=== PATIENT | female | born 1975 | race Hispanic/Latino ===

== ENCOUNTER 2018-01-11 15:37 | Emergency (ER) | payer SELFPAY ==
[2018-01-11] MEDS ORDERED: NA CHLORIDE 0.9% 1,000 ML ONE (15:52)
[2018-01-11] MEDS ORDERED: ONDANSETRON 4 MG/2 ML VIAL ONE (16:14)
[2018-01-11] MEDS ORDERED: MORPHINE 4 MG/ML SYR ONE (16:14)
[2018-01-11 16:19] LABS: Absolute Lymphocytes (CBC) 3.3 K/uL (0.7-4.9); Absolute Monocytes 0.5 K/uL (0.1-1.3); Absolute Neutrophil 6.2 K/uL (1.8-8.0); Basophils % 0.5 % (0-1.3); Eosinophils % 0.7 % (0-4.4); Hematocrit 36.4 % (36.0-45.0); Lymphocytes % 32.7 % (15.3-44.8); MCH 28.3 pg (27.0-35.0); MCV 83.2 fL (80-100); Monocytes % 4.8 % (3.3-12.3); RBC Red Blood Cell Count 4.38 M/uL (3.86-4.86)
[2018-01-11 16:23] LABS: Protime INR 1.02
--- NOTE | 2018-01-11 16:27 | RAD REPORT ---
EXAM DESCRIPTION: RAD - Chest Single View - 01/11/2018 3:55 pm CLINICAL HISTORY: Acute onset chest pain, shortness of breath COMPARISON: None. TECHNIQUE: AP portable chest image was obtained 1552 hours . FINDINGS: Lung volumes are low. No failure, infiltrate or mass. Heart and vasculature are normal. No measurable pleural effusion and no pneumothorax. No gross bony abnormality seen. No acute aortic fin dings suspected. IMPRESSION: No acute cardiopulmonary process.
[2018-01-11 16:33] LABS: ALT/SGPT 28 U/L (12-78); AST/SGOT 41 U/L (15-37); Albumin 3.6 g/dL (3.4-5.0); Alkaline Phosphatase 85 U/L (45-117); BUN Blood Urea Nitrogen 8 mg/dL (7-18); Bicarbonate 26 mmol/L (21-32); Bilirubin Direct 0.1 mg/dL (0-0.2); Bilirubin Total 0.4 mg/dL (0.2-1.0); CKMB Creatine Kinase MB < 1.0 ng/mL (0.3-3.6); Creatine Phosphokinase 91 U/L (26-192); Glucose Level 129 mg/dL (74-106); Magnesium 2.2 mg/dL (1.8-2.4); NT PRO-BNP 201 pg/mL (<125); Potassium 3.5 mmol/L (3.5-5.1); Sodium Level 141 mmol/L (136-145)
--- NOTE | 2018-01-11 16:37 | EKG ---
Test Date: 2018-01-11 Test Time: 15:36:56 Maintenance And Custodian Supervisor: RADHA-Tigre MEASUREMENT RESULTS: Intervals: Rate: 64 NC: 150 QRSD: 76 QT: 402 QTc: 414 [place]: P: 10 NC: 150 QRS: 3 T: 2 INTERPRETIVE STATEMENTS: Normal sinus rhythm non specific T abnormality Abnormal ECG No previous ECG available for comparison Electronically Signed On 01-11-18 16:36:48 CDT by Soren Correia
--- NOTE | 2018-01-11 18:51 | EDPHYS ---
Physician Documentation [facility] Name: Lien Lantigua Age: 42 yrs Sex: Female : 1975 Arrival Date: 01/11/2018 Time: 15:39 Bed 20 Private MD: ED Physician Augustine Harmon HPI: 01/11 15:53 This 42 yrs old Female presents to ER via EMS with complaints of Chest Pain. kav 15:53 The patient or guardian reports chest pain that is located primarily in the substernal kav area. Onset: acutely, just prior to arrival. The pain does not radiate. Associated signs and symptoms: Pertinent positives: diaphoresis, Pertinent negatives: dizziness, headache, lower extremity swelling, nausea, shortness of breath, vomiting. The chest pain is described as clutching. Duration: The patient or guardian reports a single episode, that is still ongoing, and unchanged. Modifying factors: The symptoms are alleviated by nothing. the symptoms are aggravated by emotionally stressful situations. Severity of pain: At its worst the pain was severe a 7 / 10. The patient has experienced a previous episode, approximately 3 months ago. The patient has not recently seen a physician. Patient reports chest pain that began 30 minutes prior to arrival to ED. She reports diaphoresis with onset of chest pain. Quality of chest pain is described as "...clutching". She reports prior episode of chest pain approximately 3 months ago and was seen at [facility] ED. She did not follow-up with cardiology after this first cardiac event. HR on amdission 53 bpm. . 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 - Social history:: Smoking status: Patient/guardian denies using tobacco, Patient/guardian denies using alcohol. - Ebola Screening: : Patient negative for fever greater than or equal to 101.5 degrees Fahrenheit, and additional compatible Ebola Virus Disease symptoms Patient denies exposure to infectious person Patient denies travel to an Ebola-affected area in the 21 days before illness onset. - Family history:: not pertinent. - Hospitalizations: : No recent hospitalization is reported. - History obtained from: daughter. ROS: 15:58 Constitutional: Negative for fever, chills, and weight loss, Eyes: Negative for injury, kav pain, redness, and discharge, ENT: Negative for injury, pain, and discharge, Neck: Negative for injury, pain, and swelling, Respiratory: Negative for shortness of breath, cough, wheezing, and pleuritic chest pain, Abdomen/GI: Negative for abdominal pain, nausea, vomiting, diarrhea, and constipation, Back: Negative for injury and pain, : Negative for injury, bleeding, discharge, and swelling, MS/Extremity: Negative for injury and deformity, Skin: Negative for injury, rash, and discoloration, Neuro: Negative for headache, weakness, numbness, tingling, and seizure, Psych: Negative for depression, anxiety, suicide ideation, homicidal ideation, and hallucinations, Allergy/Immunology: Negative for hives, rash, and allergies, Endocrine: Negative for neck swelling, polydipsia, polyuria, polyphagia, and marked weight changes, Hematologic/Lymphatic: Negative for swollen nodes, abnormal bleeding, and unusual bruising. 15:58 Cardiovascular: Positive for chest pain, of the anterior aspect of left upper chest and left breast. Exam: 15:58 Constitutional: This is a well developed, well nourished patient who is awake, alert, kav and in no acute distress. Head/Face: Normocephalic, atraumatic. Eyes: Pupils equal round and reactive to light, extra-ocular motions intact. Lids and lashes normal. Conjunctiva and sclera are non-icteric and not injected. Cornea within normal limits. Periorbital areas with no swelling, redness, or edema. ENT: Nares patent. No nasal discharge, no septal abnormalities noted. Tympanic membranes are normal and external auditory canals are clear. Oropharynx with no redness, swelling, or masses, exudates, or evidence of obstruction, uvula midline. Mucous membranes moist. Neck: Trachea midline, no thyromegaly or masses palpated, and no cervical lymphadenopathy. Supple, full range of motion without nuchal rigidity, or vertebral point tenderness. No Meningismus. Chest/axilla: Normal chest wall appearance and motion. Nontender with no deformity. No lesions are appreciated. Respiratory: Lungs have equal breath sounds bilaterally, clear to auscultation and percussion. No rales, rhonchi or wheezes noted. No increased work of breathing, no retractions or nasal flaring. Abdomen/GI: Soft, non-tender, with normal bowel sounds. No distension or tympany. No guarding or rebound. No evidence of tenderness throughout. Back: No spinal tenderness. No costovertebral tenderness. Full range of motion. Skin: Warm, dry with normal turgor. Normal color with no rashes, no lesions, and no evidence of cellulitis. MS/ Extremity: Pulses equal, no cyanosis. Neurovascular intact. Full, normal range of motion. Neuro: Awake and alert, GCS 15, oriented to person, place, time, and situation. Cranial nerves II-XII grossly intact. Motor strength 5/5 in all extremities. Sensory grossly intact. Cerebellar exam normal. Normal gait. Psych: Awake, alert, with orientation to person, place and time. Behavior, mood, and affect are within normal limits. 15:58 Cardiovascular: Rate: bradycardic, actual rate is 53 bpm, Rhythm: irregular, Sinus Bradycardia, Pulses: Pulses are 2+ in bilateral radial, brachial, femoral, popliteal, posterior tibial and and dorsalis pedis arteries.. Vital Signs: 15:43 BP 124 / 82; Pulse 53; Resp 18; Temp 98.1(O); Pulse Ox 100% on R/A; Weight 89.81 kg; hj Height 5 ft. 2 in. (157.48 cm); Pain 8/10; 16:30 BP 125 / 80; Pulse 60; Resp 18; Pulse Ox 100% on R/A; hj 17:34 BP 129 / 75; Pulse 69; Resp 18; Pulse Ox 98% on R/A; hj 18:22 BP 121 / 67; Pulse 70; Resp 18; Pulse Ox 100% on R/A; hj 15:43 Body Mass Index 36.21 (89.81 kg, 157.48 cm) MDM: 15:40 Medical screening is not applicable. [facility] 15:58 Data reviewed: vital signs, nurses notes. Data interpreted: director general:. kav 17:39 ED course: awaiting repeat troponin. [facility] 01/11 15:40 Order name: Basic Metabolic Panel; Complete Time: 16:40 [facility] 08 15:40 Order name: CBC with Diff; Complete Time: 16:40 [facility] 01/11 15:40 Order name: Ckmb; Complete Time: 16:40 v 01/11 15:40 Order name: CPK; Complete Time: 16:40 v 01/11 15:40 Order name: LFT's; Complete Time: 16:40 v 01/11 15:40 Order name: Magnesium; Complete Time: 16:40 v 01/11 15:40 Order name: NT PRO-BNP; Complete Time: 16:40 v 01/11 15:40 Order name: PT-INR; Complete Time: 16:40 v 01/11 15:40 Order name: Ptt, Activated; Complete Time: 16:40 v 01/11 15:40 Order name: Troponin (emerg Dept Use Only); Complete Time: 16:40 kav 01/11 15:40 Order name: XRAY Chest (1 view); Complete Time: 16:40 kav 01/11 16:06 Order name: Troponin (emerg Dept Use Only): repeat troponin \\T\\ 1700; Complete Time: 18:50kav 01/11 15:40 Order name: Urine Test (obtain specimen); Complete Time: 15:45 kav 01/11 15:40 Order name: EKG; Complete Time: 15:41 kav 01/11 15:40 Order name: Cardiac monitoring; Complete Time: 15:45 v 01/11 15:40 Order name: EKG - Nurse/Tech; Complete Time: 15:45 kav 01/11 15:40 Order name: IV Saline Lock; Complete Time: 16:02 v 01/11 15:40 Order name: Labs collected and sent; Complete Time: 16:02 v 01/11 15:40 Order name: O2 Per Protocol; Complete Time: 15:45 v 01/11 15:40 Order name: O2 Sat Monitoring; Complete Time: 15:45 kav Administered Medications: 15:45 Drug: NS 0.9% 1000 ml Route: IV; Rate: 1 bolus; Site: right hand; hj 17:23 Follow up: IV Status: Completed infusion; IV Intake: 1000ml 16:07 Drug: morphine 4 mg Route: IVP; Site: right hand; hj 16:28 Follow up: Response: No adverse reaction; Pain is decreased 16:07 Drug: Zofran 4 mg Route: IVP; Site: right hand; 16:28 Follow up: Response: No adverse reaction hj Disposition: 01/11/18 18:50 Discharged to Home. Impression: Chest pain, unspecified. - Condition is Stable. - Discharge Instructions: Chest Wall Pain. - Prescriptions for Ibuprofen 800 mg Oral Tablet - take 1 tablet by ORAL route every 8 hours As needed take with food; 30 tablet. - Medication Reconciliation Form, Thank You Letter, SBAR form form. - Follow up: Matt Rodriguez; When: 2 - 3 days; Reason: Recheck today's complaints, Continuance of care, Re-evaluation by your physician. - Problem is new. - Symptoms have improved. Addendum: 01/13/2018 07:05 Co-signature as Attending Physician, Augustine Harmon MD. r n Signatures: Dispatcher [employer] EDCharlee Jeff, GREASE REFINING SUPERVISOR GREASE REFINING SUPERVISOR Augustine Burns MD MD rn Joaquin, Henry, RN RN hj Corrections: (The following items were deleted from the chart) 01/11 18:59 18:50 01/11/2018 18:50 Discharged to Home. Impression: Chest pain, unspecified. hj Condition is Stable. Forms are SBAR form, Medication Reconciliation Form, Thank You Letter, Antibiotic Education, Prescription Opioid Use. Follow up: Matt Rodriguez; When: 2 - 3 days; Reason: Recheck today's complaints, Continuance of care, Re-evaluation by your physician. Problem is new. Symptoms have improved. vineet
--- NOTE | 2018-01-11 18:51 | ER ---
Nurse's Notes [facility] Name: Lien Lantigua Age: 42 yrs Sex: Female : 1975 Arrival Date: 01/11/2018 Time: 15:39 Bed 20 Private MD: Diagnosis: Chest pain, unspecified Presentation: 01/11 15:39 Presenting complaint: EMS states: was shopping in [employer] when she suddenly felt hj pain 8/10 on her chest, with difficultly breathing, per pt, she had the same episode during anxiety attack; complaints of blurry vision; non radiating chest pain;. Transition of care: patient was not received from another setting of care. Onset of symptoms was January 11, 2018. Risk Assessment: Do you want to hurt yourself or someone else? Patient reports no desire to harm self or others. Initial Sepsis Screen: Does the patient meet any 2 criteria? No. Patient's initial sepsis screen is negative. Does the patient have a suspected source of infection? No. Patient's initial sepsis screen is negative. Care prior to arrival: Medication(s) given: ASA, 325 mg, x 1. 15:39 Method Of Arrival: EMS: [facility] 15:39 Acuity: LOUIE 3 hj Triage Assessment: 15:42 General: Appears in no apparent distress. uncomfortable, Behavior is calm, cooperative, hj appropriate for age. Pain: Complains of pain in chest Pain does not radiate. Pain currently is 8 out of 10 on a pain scale. Quality of pain is described as aching. EENT: No signs and/or symptoms were reported regarding the EENT system. Neuro: Level of Consciousness is awake, alert, obeys commands, Oriented to person, place, time, situation, Appropriate for age. Cardiovascular: Reports chest pain, Heart tones S1 S2 Capillary refill < 3 seconds Patient's skin is warm and dry. Respiratory: Airway is patent Respiratory effort is even, unlabored, Respiratory pattern is regular, symmetrical. GI: No signs and/or symptoms were reported involving the gastrointestinal system. : No signs and/or symptoms were reported regarding the genitourinary system. Derm: No signs and/or symptoms reported regarding the dermatologic system. Musculoskeletal: No signs and/or symptoms reported regarding the musculoskeletal system. 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 - Social history:: Smoking status: Patient/guardian denies using tobacco, Patient/guardian denies using alcohol. - Ebola Screening: : Patient negative for fever greater than or equal to 101.5 degrees Fahrenheit, and additional compatible Ebola Virus Disease symptoms Patient denies exposure to infectious person Patient denies travel to an Ebola-affected area in the 21 days before illness onset. - Family history:: not pertinent. - Hospitalizations: : No recent hospitalization is reported. - History obtained from: daughter. Screenin:42 Abuse screen: Denies threats or abuse. Denies injuries from another. Nutritional hj screening: No deficits noted. Tuberculosis screening: No symptoms or risk factors identified. Fall Risk None identified. Assessment: 15:43 Pain: Pain began suddenly, 30 min ago. hj 15:44 Reassessment: see triage for assessment;. hj 16:30 Reassessment: Patient and/or family updated on plan of care and expected duration. Pain hj level reassessed. Patient is alert, oriented x 3, equal unlabored respirations, skin warm/dry/pink. Patient states feeling better. Patient states symptoms have improved. 17:33 Reassessment: Patient and/or family updated on plan of care and expected duration. Pain hj level reassessed. Patient is alert, oriented x 3, equal unlabored respirations, skin warm/dry/pink. Patient states feeling better. Patient states symptoms have improved. 18:22 Reassessment: Patient and/or family updated on plan of care and expected duration. Pain hj level reassessed. Patient is alert, oriented x 3, equal unlabored respirations, skin warm/dry/pink. trop specimen sent; Patient states feeling better. Patient states symptoms have improved. 18:39 Reassessment: awaiting 2nd set of trop;. Vital Signs: 15:43 BP 124 / 82; Pulse 53; Resp 18; Temp 98.1(O); Pulse Ox 100% on R/A; Weight 89.81 kg; hj Height 5 ft. 2 in. (157.48 cm); Pain 8/10; 16:30 BP 125 / 80; Pulse 60; Resp 18; Pulse Ox 100% on R/A; hj 17:34 BP 129 / 75; Pulse 69; Resp 18; Pulse Ox 98% on R/A; hj 18:22 BP 121 / 67; Pulse 70; Resp 18; Pulse Ox 100% on R/A; hj 15:43 Body Mass Index 36.21 (89.81 kg, 157.48 cm) hj ED Course: 15:39 Patient arrived in ED. hj 15:40 Charlee Cortés FNP [facility]. kav 15:40 Augustine Harmon MD is Attending Physician. kav 15:41 Triage completed. hj 15:43 Arm band placed on right wrist. hj 15:43 Patient has correct armband on for positive identification. Placed in gown. Bed in low hj position. Call light in reach. Side rails up X 1. hammer adjuster on. Pulse ox on. NIBP on. 15:43 Patient maintains SpO2 saturation greater than 95% on room air. hj 15:45 Osmar Mosley, RAJ is Primary Nurse. hj 15:45 Initial lab(s) drawn, by nh, sent to lab. Inserted saline lock: 22 gauge in right hand, hj using aseptic technique. Blood collected. 15:46 EKG done, by technology analyst. reviewed by Charlee RIVAS. sm3 15:55 XRAY Chest (1 view) In Process Unspecified. EDMS 18:27 Troponin I Sent. hj 18:42 Troponin I Sent. hj 18:43 Troponin (emerg Dept Use Only): repeat troponin \T\ 1700 Sent. hj 18:50 Matt Rodriguez MD is Referral Physician. kav Administered Medications: 15:45 Drug: NS 0.9% 1000 ml Route: IV; Rate: 1 bolus; Site: right hand; hj 17:23 Follow up: IV Status: Completed infusion; IV Intake: 1000ml hj 16:07 Drug: morphine 4 mg Route: IVP; Site: right hand; hj 16:28 Follow up: Response: No adverse reaction; Pain is decreased hj 16:07 Drug: Zofran 4 mg Route: IVP; Site: right hand; hj 16:28 Follow up: Response: No adverse reaction hj Intake: 17:23 IV: 1000ml; Total: 1000ml. hj Outcome: 18:50 Discharge ordered by MD. manley 18:59 Patient left the ED. esteban Signatures: Dispatcher [employer] EDCharlee Jeff, LINING INSERTER LINING INSERTER Osmar Boyd RN RN Karrie Oliveira sm3 Corrections: (The following items were deleted from the chart) 15:47 15:43 Pulse 53bpm; Resp 18bpm; Pulse Ox 100% RA; Temp 98.1F Oral; 89.81 kg; Height 5 hj ft. 2 in.; BMI: 36.2; Pain 8/10; hj
== END 2018-01-11 18:59 | disposition home or self-care (01) ==
LOC: ER 15:37
DX: R07.9 Chest pain, unspecified (principal)
CPT/HCPCS: 36415; 71045; 80048; 80076; 82550; 82553; 83735; 83880; 84484; 85025; 85610; 85730; 93005; 96361; 96374; 96375; 99285; J2405; J7030